=== PATIENT | male | born 1980 | race Caucasian/White ===

== ENCOUNTER 2018-01-12 10:53 | Emergency (ER) | payer BC, OTHER ==
[2018-01-12 11:11] VITALS: BP 155/84
--- NOTE | 2018-01-12 11:12 | ED Physician Documentation ---
General Adult - HISTORIAN Historian: patient - HPI Stated Complaint: Dental pain Chief Complaint: General Adult Onset: days ago (3) Timing: still present Severity: moderate Further Comments: yes (Pt is a 38 yo male with dental pain. Pt has had a fractured tooth on the upper left for about a month, but in the past 3 days it has become painful with swelling. No fever.) - ROS CONST: no problems EYES/ENT: other (dental pain/swelling) CVS/RESP: none GI/: none MS/SKIN/LYMPH: none - PAST HX Past History: other (GERD, HLD) Allergies/Adverse Reactions: Allergies Allergy/AdvReac Type Severity Reaction Status Date / Time citric acid Allergy Verified 01/12/18 11:05 Home Medications: Ambulatory Orders Medication Instructions Recorded Baclofen 10 mg PO BID 10/06/16 traMADol HCL [Ultram] 50 mg PO Q6H PRN 10/06/16 Diclofenac Sodium [Voltaren] 75 mg PO BID 01/12/18 Gabapentin [Gabapentin] 200 mg PO BID 01/12/18 Gabapentin [Gabapentin] 400 mg PO HS 01/12/18 Gemfibrozil [Lopid] 1,200 mg PO DAILY 01/12/18 Ranitidine HCl 300 mg PO DAILY 01/12/18 - SOCIAL HX Smoking History: cigarettes - FAMILY HX Family History: No - VITAL SIGNS Vital Signs: Vital Signs Temp Pulse Resp BP Pulse Ox 97.9 F 83 18 155/84 95 01/12/18 11:08 01/12/18 11:08 01/12/18 11:08 01/12/18 11:08 01/12/18 11:08 - REVIEWED ASSESSMENTS Nursing Assessment Reviewed: Yes Vitals Reviewed: Yes Progress - Progress Progress: Rx Penicillin VK 500 mg. Take one tablet by mouth every 8 hrs for 10 days. RF: 1 Rx [place] (5/325). Take one or two tablet by mouth every 4 to 6 hrs as needed for moderate to severe pain. f/u dentist General Adult Physical Exam - PHYSICAL EXAM GENERAL APPEARANCE: moderate distress EENT: pharynx normal, other (upper L molar with fx, tenderness, swelling) RESPIRATORY: no resp distress CVS: reg rate & rhythm BACK: normal inspection SKIN: warm/dry, normal color EXTREMITIES: non-tender, normal range of motion NEURO: oriented X3, motor nml, sensation nml Discharge Clincal Impression: Pain, dental Referrals: Kiki Larsoe PRN [Primary Care Provider] - 2 Days Condition: Good Disposition: 01 HOME, SELF-CARE Decision to Admit: NO Decision Time: 11:12
== END 2018-01-12 11:17 | disposition home or self-care (01) ==
LOC: ED 10:53
DX: K02.9 Dental caries, unspecified (principal)
CPT/HCPCS: 99282